=== PATIENT | female | born 1960 | race Caucasian/White ===

== ENCOUNTER 2016-06-16 02:01 | Inpatient (IN) | payer OTHER ==
[~2016-06-16] VITALS: Ht 167.6 cm; Wt 81.6 kg
[~2016-06-16 02:01] MED LIST: LISINOPRIL-HCT1 EAC2 PO; METAMUCIL POWD174 GM; ZETIA10 M1 PO
[2016-06-16] MEDS ORDERED: VITAMIN D1000 UNIT PO (07:16)
[2016-06-16] MEDS ORDERED: TRAMADOL HCL50 M1 PO (07:16)
[2016-06-16] MEDS ORDERED: MAGNESIUM400 M1 PO (07:17)
[2016-06-16] MEDS ORDERED: CYCLOBENZAPRINE10 M1 PO (07:17)
--- NOTE | 2016-06-16 10:00 | Admission Core Measures ---
Admission Meds I reviewed the following Meds: Current Medications Sig/Francisco Start time Last Medication Dose Stop Time Status Admin Acetaminophen 975 MG ONCE 06/16 0000 NR (Tylenol) 06/16 2358 Cefazolin Sodium 2,000 MG ONCE 06/16 NR (Kefzol-Ancef Inj) 06/16 2358 Cyclobenzaprine HCl 10 MG QPM PRN 06/16 2200 AC (Flexeril 10MG Tab) Ezetimibe 10 MG DAILY 06/16 1000 AC (Zetia) Lisinopril 10 MG DAILY 06/16 1000 AC (Prinivil) Oxycodone HCl 10 MG ONCE 06/16 0000 NR (Roxicodone) 06/16 2358 Acute Coronary Syndrome Inclusion Criteria ACS Diagnosis No Inpatient Core Measures LDL Reminder: If No, please order W/I first 24hr of stay Congestive Heart Failure Inclusion Criteria CHF Diagnosis No Cerebrovascular accident Inclusion Criteria CVA/TIA Diagnosis No Inpatient Core Measures Bedside Swallow Eval Reminder: If BSE failed, place ST order Antithrombotic Reminder: Order Antithrombotic Medication by end of day 2 Antithrombotic Reminder: Document Reason Antithrombotic Not ordered by end of day 2 AFIB/Flutter Reminder: If Present, add to problem list AFIB/Flutter Reminder: Order Anticoag Medication for pts with AFIB/Flutter Atherosclerosis Reminder: If Present, add to problem list LDL Reminder: If No, please order W/I first 24hr of stay PT Order Reminder: If No, please order Venous thromboembolism Inpatient Core Measures VTE Risk Factors: Age > 40, Surgery No [facility] VTE prophylaxis d/t No contraindications No VTE Pharm Prophylaxis d/t No contraindications Inclusion Criteria - Per Current guidelines, there needs to be overlap - treatment for the first 5 days of Warfarin therapy. - Parenteral Anticoagulation (IV or SC) needs to be - given along with Warfarin therapy. VTE Diagnosis No VTE Type NONE VTE Confirmed by (Test) NONE Problem List As ranked by this Provider includes Assessment & Plan 1. Unilateral primary osteoarthritis, right hip HOME MEDS Home Med List Cholecalciferol (Vitamin D3) (Vitamin D) 1,000 UNIT TABLET 1 TAB PO BID SUPPLEMENT (Reported) Cyclobenzaprine HCl 10 MG TABLET 1 TAB PO QPM PRN SLEEP (Reported) Ezetimibe (Zetia) 10 MG TABLET 1 TAB PO DAILY CHOLESTEROL (Reported) Lisinopril/Hydrochlorothiazide (Lisinopril-Hctz 10-12.5 MG Tab) 10 MG-12.5 MG TABLET 1 TAB PO DAILY HTN (Reported) Magnesium Oxide (Magnesium) 400 MG CAPSULE 1 CAP PO DAILY LEG CRAMPS ( Reported) Tramadol HCl 50 MG TABLET 1 TAB PO Q6P PRN PAIN (Reported)
[2016-06-16] MEDS ORDERED: MS CONTIN15 M2 PO (10:11)
[2016-06-16] MEDS ORDERED: MIRALAX17 G1 PO (10:11)
[2016-06-16] MEDS ORDERED: DILAUDID2 M1 PO (10:11)
[2016-06-16] MEDS ORDERED: COLACE100 M1 PO (10:11)
[2016-06-16] MEDS ORDERED: ASPIRIN EC325 M2 PO (10:11)
[2016-06-16] MEDS ORDERED: PRILOSEC OTC20 M1 PO (10:11)
--- NOTE | 2016-06-16 10:14 | Patient Discharge Instructions ---
Discharge Instructions General Discharge Information You were seen/treated for: RIGHT HIP PAIN You had these procedures: RIGHT TOTAL HIP REPLACEMENT Watch for these problems: INCREASING PAIN DESPITE THE USE OF PAIN MEDICAITON, REDNESS, WARMTH, SWELLING. DRAINAGE OF ANY TYPE FROM INCISION. INABILITY TO BEAR WEIGHT ON RIGHT LEG. FEVER >101.5 Do not soak the wound: Yes No bath, but you may shower: Yes Other wound care: NO OINTMENTS OF ANY TYPE AT ANY TIME ON INCISION. NO EXCEPTIONS. KEEP WOUND CLEAN AND DRY. Special Instructions: ASPIRIN 325 TO BE TAKEN TWICE DAILY FOR MINIMUM OF 3 WEEKS. PLEASE TAKE PRILOSEC TO PROTECT YOUR STOMACH LINING WHILE ON ASPIRIN. PAIN MEDICATIONS CAN BE CONSTIPATING. PLEASE BE SURE YOU ARE TAKING MIRALAX AND COLACE UNTIL HAVING REGULAR BOWEL MOVEMENTS. Diet Continue normal diet: Yes Recommended Diet: Regular Additional DIET Information: ADVANCE TOLERATED Activity Full Activity/No Limits: No Activity Self Limited: Yes Pounds, do NOT lift more than: 10 Additional ACTIVITY Info: WEIGHT BEAR TOLERATED Acute Coronary Syndrome Inclusion Criteria At DC or during hospital stay patient has or had the following: ACS DIAGNOSIS No Discharge Core Measures Meds if any: Prescribed or Continued at Discharge Meds if any: NOT Prescribed or Continued at Discharge Congestive Heart Failure Inclusion Criteria At DC or during hospital stay patient has or had the following: CHF DIAGNOSIS No Discharge Core Measures Meds if any: Prescribed or Continued at Discharge Meds if any: NOT Prescribed or Continued at Discharge Cerebrovascular accident Inclusion Criteria At DC or during hospital stay patient has or had the following: CVA/TIA Diagnosis No Discharge Core Measures Meds if any: Prescribed or Continued at Discharge Meds if any: NOT Prescribed or Continued at Discharge Venous thromboembolism Inclusion Criteria VTE Diagnosis No VTE Type NONE VTE Confirmed by (Test) NONE Discharge Core Measures - Per Current guidelines, there needs to be overlap - treatment for the first 5 days of Warfarin therapy. - If discharged on Warfarin prior to 5 days of - overlap therapy, the patient will need to be - assessed for post discharge needs including - *Post discharge parental anticoagulation - *Warfarin and/or parental anticoagulation education - *Follow up date to check INR post discharge At least 5 days overlap therapy as Inpatient No Meds if any: Prescribed or Continued at Discharge Note: Overlap Therapy is Warfarin and Anticoagulant Meds if any: NOT Prescribed or Continued at Discharge
--- NOTE | 2016-06-16 10:18 | Surgical Discharge Summary ---
Visit Information Visit Dates Admission Date: 06/16/16 Discharge Date: 06/17/16 History of Present Illness Chief Complaint: RIGHT HIP PAIN Surgical History Pertinent Surgical History: non-contributory Review of Systems: SEE H&P Hospital Course Course Attending Physician: WILFRED VO MD Primary Care Physician: CARIN VALDOVINOS MD Hospital Course: ALEXANDER WAS ADMITTED TO THE HOSPITAL ON 06/16/2016 FOR AN ELECTIVE RIGHT TOTAL HIP REPLACEMENT. SHE TOLERATED THE PROCEDURE WELL AND WAS TRANSFERRED TO A GENERAL SURGICAL FLOOR. HER DIET WAS ADVANCED AND TOLERATED. SHE VOIDED SPONTANEOULSY. HER PAIN WAS CONTROLLED WELL WITH PO PAIN MEDICATION. HER VITAL SIGNS WERE STABLE AND WITHIN NORMAL LIMITS. HER NEUROVASCULAR STATUS WAS INTACT. SHE WAS EVALUATED AND TREATED BY PHYSICAL THERAPY AND DEEMED APPROPRIATE FOR DISCHARGE. Complications: None Allergies: Coded Allergies: No Known Allergies (06/15/16) Disposition Summary Disposition Principal Diagnosis: RIGHT HIP UNILATERAL PRIMARY OSTEOARTHRITIS Additional Diagnosis: NONE Discharge Disposition: home health services Discharge Instructions General Discharge Information Code Status: Full Code Patient's Diet: REGULAR, ADVANCE TOLERATED Patient's Activity: WBAT Follow-Up Instructions/Appts: [address]ICE [address] VO Medications at Discharge Discharge Medications: Stop taking the following medications: Psyllium Husk/Aspartame (Metamucil Powder) 3.4 GRAM/5.8 GRAM POWDER DAILY Tramadol HCl (Tramadol HCl) 50 MG TABLET ORAL EVERY SIX HOURS NEEDED as needed for PAIN Continue taking these medications: Ezetimibe (Zetia) 10 MG TABLET 1 Tablet ORAL DAILY Comments: NOT GIVEN Lisinopril/Hydrochlorothiazide (Lisinopril-Hctz 10-12.5 MG Tab) 10 MG-12.5 MG TABLET 1 Tablet ORAL DAILY Cholecalciferol (Vitamin D3) (Vitamin D) 1,000 UNIT TABLET 1 Tablet ORAL TWICE DAILY Comments: NOT GIVEN Cyclobenzaprine HCl (Cyclobenzaprine HCl) 10 MG TABLET 1 Tablet ORAL Every night as needed for SLEEP Comments: NOT GIVEN Magnesium Oxide (Magnesium) 400 MG CAPSULE 1 Capsule ORAL DAILY Comments: NOT GIVEN Start taking the following new medications: Aspirin (Ecotrin*) 325 MG TABLET.DR 1 Tablet ORAL TWICE DAILY Qty = 60 No Refills Comments: NOT GIVEN Docusate Sodium (Colace) 100 MG CAPSULE 1 Capsule ORAL TWICE DAILY Qty = 14 No Refills Instructions: DISCONTINUE USE IF YOU DEVELOP LOOSE STOOL OR DIARRHEA Comments: NOT GIVEN Polyethylene Glycol 3350 (Miralax) 17 GRAM POWD.PACK 1 Packet ORAL DAILY Qty = 7 No Refills Instructions: dissolve in water, DISCONTINUE USE IF YOU DEVELOP LOOSE STOOL OR DIARRHEA Comments: NOT GIVEN Hydromorphone HCl (Dilaudid) 2 MG TABLET 1-2 Tablet ORAL EVERY 4-6 HOURS as needed for PAIN Qty = 36 No Refills Comments: LAST GIVEN 06/16/16 2:03 PM Morphine Sulfate (Ms Contin) 15 MG TABLET.ER 1 Tablet ORAL TWICE DAILY Qty = 6 No Refills Comments: NOT GIVEN Omeprazole Magnesium (Prilosec Otc) 20 MG TABLET.DR 1 Tablet ORAL DAILY Qty = 30 No Refills Comments: NOT GIVEN
--- NOTE | 2016-06-16 11:53 | RADIOLOGY REPORT ---
EXAMINATION: XR HIP, RIGHT CLINICAL INFORMATION: Status post right hip arthroplasty. COMPARISON: None TECHNIQUE: AP and crosstable lateral views of the right hip were obtained. of the right hip. FINDINGS: There are expected changes status post right total hip arthroplasty. Alignment is anatomic. No postoperative complication is seen. There is a small amount of postoperative soft tissue emphysema. IMPRESSION: Expected appearance status post right YOAN.
[2016-06-16 12:15] VITALS: BP 122/80
--- NOTE | 2016-06-16 12:15 | NUR ---
PT TX FROM PACU S/P RT TOTAL HIP REPLACEMENT, PT AXO, C/O RT HIP PAIN 04/16, DURKOLD IN PLACE TO RT HIP,RT HIP DSG CDI, PT ORIENTED TO ROOM, CALL LIGHT AND PLAN OF CARE, PT VERBALIZES UNDERSTANDING.
--- NOTE | 2016-06-16 13:54 | PN- Orthopedic ---
Subjective Subjective: POST OP CHECK S: S/P right anterior total hip replacement. Resting comfortably in chair. Received Dilaudid PO x1 tablet which 'took edge off and that's about all it did' . Asking for second pill. Tolerated regular diet without nausea or vomiting. Denies CP/SOB. Ambulated from stretcher to chair without difficulty. Has yet to void. Objective Vital Signs and I&Os Vital Signs Date Time Temp Pulse Resp B/P Pulse O2 O2 Flow FiO2 Ox Delivery Rate 06/16 1215 97.8 87 18 122/80 95 Room Air Intake & Output 06/16 1600 06/16 0800 06/16 0000 06/15 1600 06/15 0800 06/15 0000 Intake Total Output Total Balance Patient 180 lb 180 lb Weight Physical Exam: Gen: AAOx3 in NAD Cor: S1+S2+ Lungs: CTA dora Abd: soft, NT, ND, +BS x4 Ext: right hip dressing C/D/I. Thigh/calf compartments soft. Dorsiflexion and plantar flexion intact. Palpable DP pulses dora. Feet warm. Sensation intact to thigh, calf, foot. Current Medications: Current Medications Sig/Francisco Start time Last Medication Dose Route Stop Time Status Admin Acetaminophen 650 MG Q4P PRN 06/16 1230 AC PO Acetaminophen 0 .STK-MED ONE 06/16 0711 DC PO Acetaminophen 975 MG ONCE 06/16 0000 DC PO 06/16 2359 Aspirin 325 MG BID 06/16 2200 AC PO Cefazolin Sodium 2 GM IQ8 06/16 1600 AC N/A 1 UNIT IV 06/17 0029 Cefazolin Sodium 2,000 MG ONCE 06/16 0000 DC IV 06/16 2359 Cyclobenzaprine HCl 10 MG QPM PRN 06/16 2200 DC PO Cyclobenzaprine HCl 10 MG QPM PRN 06/16 2200 AC PO Dextrose/Sodium 1,000 ML .[id number] 06/16 1230 AC 06/16 Chloride IV 1215 Docusate Sodium 100 MG BID 06/16 2200 AC PO Ezetimibe 10 MG DAILY 06/17 1000 AC PO Ezetimibe 10 MG DAILY 06/16 1000 DC PO Hydrochlorothiazide 12.5 MG DAILY 06/16 1000 AC PO Hydromorphone HCl 2 MG Q4P PRN 06/16 1230 AC 06/16 PO 1319 Hydromorphone HCl 4 MG Q4P PRN 06/16 1230 AC PO Ketorolac 15 MG Q8P PRN 06/16 1230 AC Tromethamine IV 06/19 1224 Lisinopril 10 MG DAILY 06/17 1000 AC PO Lisinopril 10 MG DAILY 06/16 1000 DC PO Morphine Sulfate 2 MG Q2P PRN 06/16 1230 AC IV Omeprazole 40 MG DAILY AC 06/17 0700 AC PO Ondansetron HCl 4 MG Q6P PRN 06/16 1230 AC IV Oxycodone HCl 0 .STK-MED ONE 06/16 0711 DC PO Oxycodone HCl 10 MG ONCE 06/16 0000 DC PO 06/16 2359 Polyethylene Glycol 17 GM DAILY 06/17 1000 AC PO Promethazine HCl 12.5 MG Q6P PRN 06/16 1230 AC IV 06/23 1014 Assessment/Plan Assessment/Plan A: S/P right anterior THR; AVSS. Plan: Due to void. Needs PT clearance. Ok for d/c home once above goals reached. Core Measures/Miscellaneous Venous Thromboembolism VTE Risk Factors: Age > 40, Surgery VTE Contraindications: No Contraindications VTE Diagnosis: No VTE Type: NONE VTE Confirmed by (Test): NONE Beta Jeanine Is Beta Jeanine a Home Med? No Antibiotics Is Patient on Antibiotics? Yes If Yes: prophylaxis
[2016-06-16 14:16] VITALS: BP 130/60
--- NOTE | 2016-06-16 14:28 | Operative Report ---
Operative/Inv Procedure Report Surgery Date: 06/16/16 Name of Procedure: Right total hip replacement Pre-Operative Diagnosis: Primary right hip DJD Post-Operative Diagnosis: Same Estimated Blood Loss: 250 Surgeon/Benefits Manager: TAVO ABBOTT,WILFRED Good Anesthesia: block Operative/Procedure Note Note: Description of Procedure: The patient was taken to the operating room and positively identified. After induction of spinal anesthesia and administration of appropriate pre-operative antibiotics, the patient was positioned supine on the operating room table and all bony prominences were well padded. After performing a surgical timeout, the right lower extremity was prepped and draped in the usual sterile fashion. A direct anterior approach was made to the right hip. The incision was carried sharply through superficial soft tissues to the level of the fascia. Meticulous hemostasis was maintained with Bovie electocautery. The fascia over the tensor fascia edmundo muscle was opened sharply and the interval between the TFL and the sartorius was entered bluntly taking care to stay lateral to the lateral femoral cutaneous nerve. Retractors were placed around the femoral neck and the pericapsular fat was identified. The ascending branches of the lateral femoral circumflex vessels were identified and carefully coagulated. The pericapsular fat and anterior capsule were then resected. A napkin ring osteotomy was performed and the femoral head was removed without difficulty. Attention was then turned to the acetabulum. After appropriate placement of retractors, the acetabulum was exposed. Soft tissue was cleaned from the acetabular margin and notch. Overhanging osteophytes were removed and the teardrop was exposed. The acetabulum was then sequentially reamed to accept a 50 mm Violetta Tritanium hemispherical solid back shell. This was impacted into place in the appropriate position and fitted with a 32 mm Trident X3 zero degree polyethylene insert. Attention was then turned to the femur. After performing the appropriate ligament releases, the proximal femur was exposed. It was then sequentially broached to accept a size 2 [place] accolade 2 stem. This was trialed for leg length and stability. The trial component was removed and the final component was impacted into place. The trunnion was carefully cleaned and fit with a 32 mm, +4 Biolox delta ceramic femoral head. The hip was reduced and put through a full range of motion and found to be stable. The articular space was then irrigated with sterile saline. The periarticular soft tissues were infilitrated with Marcaine. The fascial layer was closed with interrupted #1 vicryl suture and the skin was re-approximated with interrupted 2 -0 vicryl. The skin was closed with a running 3-0 V-Lock suture. Steri-strips and a sterile dressing were applied. The patient was awakened and taken to the recovery room in satisfactory condition.
--- NOTE | 2016-06-16 14:54 | NUR ---
Physical Therapy: Pt requesting back to bed when hip kit was delivered. Assissed patient back to bed at time. Settled in- needs in reach.
[2016-06-16 16:10] VITALS: BP 130/70
--- NOTE | 2016-06-16 17:45 | NUR ---
PT VOIDED POST SKINNER REMOVAL, CLEARED BY PT TO GO HOME. PT STATED THAT SHE FELT UNCOMFORTABLE LEAVING HOSPITAL DUE TO FEAR OF PAIN NOT BEING CONTROLLED. SURGICAL PA NOTIFIED. DISCHARGE ORDERED CANCELLED. PT EDUCATED ON PAIN SCHEDULE. WILL CONTINUE TO MONITOR.
[2016-06-16 18:09] VITALS: BP 122/60
[2016-06-16 22:14] VITALS: BP 112/60
--- NOTE | 2016-06-16 22:52 | NUR ---
PTS TEMP 99.8 ORALLY, SURG PA SHERYL NOTIFIED. WILL CONTINUE TO MONITOR.
[2016-06-17 01:48] VITALS: BP 114/60
[2016-06-17 06:53] VITALS: BP 140/78
--- NOTE | 2016-06-17 07:50 | PN- Orthopedic ---
Subjective Subjective: Reports expected incisional pain and soreness, improved with pain medication. Tolerating diet. Cleared by PT for home yesterday. No dizziness. No shortness of breath. No chest pains. Voiding well. Anticipates discharge to home today. Objective Vital Signs and I&Os Vital Signs Date Time Temp Pulse Resp B/P Pulse O2 O2 Flow FiO2 Ox Delivery Rate 06/17 0653 99.3 89 20 140/78 98 Room Air 06/17 0148 99.1 93 20 114/60 97 Room Air 06/16 2214 99.8 96 20 112/60 99 Room Air 06/16 1809 98.2 92 20 122/60 98 Room Air 06/16 1610 98.3 97 20 130/70 97 Room Air 06/16 1416 98.5 108 20 130/60 97 06/16 1215 97.8 87 18 122/80 95 Room Air Intake & Output 06/17 0800 06/17 0000 06/16 1600 06/16 0800 06/16 0000 06/15 1600 Intake Total 1200 775 Output Total 800 Balance 400 775 Intake, IV 600 225 Intake, Oral 600 550 Output, Urine 800 Patient 180 lb 180 lb Weight Physical Exam: General - alert & oriented x 3. comfortable. no acute distress. Lungs - clear bilaterally. no w/r/r. Cardiac - s1s2. reg. Abdomen - soft. nontender. Extremities - warm bilaterally. right hip dressing c/d/i. expected post-op swelling. no hematoma. no drains. nvi. calves soft and nontender b/l. Assessment/Plan Assessment/Plan This 55 year old white female is POD#1 s/p right anterior THR pain improves with medication tolerating diet cleared by PT for home yesterday asa bid eulalio-op abx complete d/c home with services today will d/w Core Measures/Miscellaneous Venous Thromboembolism VTE Risk Factors: Age > 40, Surgery VTE Contraindications: No Contraindications VTE Diagnosis: No VTE Type: NONE VTE Confirmed by (Test): NONE Beta Jeanine Is Beta Jeanine a Home Med? No Antibiotics Is Patient on Antibiotics? Yes If Yes: prophylaxis
[2016-06-17 08:19] LABS: ABSOLUTE BASOPHIL COUNT 0 /CUMM (0.0-0.2); ABSOLUTE EOSINOPHIL COUNT 0.5 /CUMM (0.0-0.7); ABSOLUTE GRANULOCYTE CT 6.1 /CUMM (1.4-6.5); ABSOLUTE LYMPH COUNT 1.9 /CUMM (1.2-3.4); ABSOLUTE MONOCYTE COUNT 1.2 /CUMM (0.10-0.60); BASOPHIL % 0.5 % (0.0-2.0); EOSINOPHIL % 4.8 % (0-5); GRANULOCYTE % 62.7 % (42.2-75.2); HEMATOCRIT 29.9 % (37-47); MEAN CORPUSCULAR HGB CONC 33.7 G/DL (33.0-37.0); MEAN CORPUSCULAR VOLUME 85.9 FL (81.0-99.0); MEAN PLATELET VOLUME 8.3 FL (7.4-10.4); PLATELET COUNT 348 /CUMM (130-400); RBC DISTRIBUTION WIDTH 13.3 % (11.5-14.5); RED BLOOD CELL CT 3.48 /CUMM (4.20-5.40); WHITE BLOOD CELL COUNT 9.7 /CUMM (4.8-10.8)
[2016-06-17 09:07] VITALS: BP 140/74
== END 2016-06-17 12:39 | disposition home health service (06) | DRG 470 ==
LOC: ENRESERVTM → ENRESERVDT → ENPENDDIS 02:01 → EDPENDDISTM 02:01 → 2NA 02:01 → EDPENDDISDT 02:01 → SDA 02:01 → 2NA 12:13
PROVIDERS: Nurse Practitioner; ADMIT Orthopaedic Surgery
PROC: 0SR904A Replacement of Right Hip Joint with Ceramic on Polyethylene Synthetic Substitute, Uncemented, Open Approach (ICD-10-PCS; principal; 2016-06-16)
DX: M16.11 Unilateral primary osteoarthritis, right hip (principal); I10 Essential (primary) hypertension; E78.5 Hyperlipidemia, unspecified
CPT/HCPCS: 2NASP; 73502-RT; 82436; 88304; 97110-GO; 97116-GO; 97161-GP; 97530-GO; J0690; J0735; J1885; J2405; J2550; J7042